=== PATIENT | male | born 1955 | race Caucasian/White ===

== ENCOUNTER 2020-03-22 16:25 | Emergency (ER) | payer BC ==
--- NOTE | 2020-03-22 17:29 | EDM.PDOC ---
ED HPI GENERAL MEDICAL PROBLEM - General Chief Complaint: Lower Extremity Injury/Pain Stated Complaint: SWOLLEN LEFT CALF Time Seen by Provider: 03/22/20 17:11 Source of Information: Reports: Patient, Old Records, RN Notes Reviewed History Limitations: Reports: No Limitations - History of Present Illness INITIAL COMMENTS - FREE TEXT/NARRATIVE: 64-year-old gentleman presents emergency department a complaint of left calf pain, he was initially evaluated by his primary care was set up for an ultrasound which was done 2 days prior negative for DVT however concern for a large fluid collection 3.5 x 1.3 x 4.3 which may represent a dissecting or ruptured Freire's cyst. He states the pain and swelling in his leg has increased. No shortness of breath no chest pain he has been using Advil for pain control Left Leg Pain Score (Numeric/FACES): 8 - Related Data Allergies Allergy/AdvReac Type Severity Reaction Status Date / Time No Known Allergies Allergy Verified 03/22/20 16:47 Home Meds: Home Meds Naproxen 500 mg PO BID 03/22/20 [History] Past Medical History Gastrointestinal History: Reports: GERD, Irritable Bowel Syndrome Musculoskeletal History: Reports: Other (See Below) Other Musculoskeletal History: right elbow abcess - Infectious Disease History Infectious Disease History: Reports: Chicken Pox, Shingles - Past Surgical History GI Surgical History: Reports: Colonoscopy, Hernia, Inguinal, Kristine Fundoplication Musculoskeletal Surgical History: Reports: Arthroscopic Knee Social & Family History - Family History Family Medical History: Noncontributory - Tobacco Use Smoking Status *Q: Never Smoker - Caffeine Use Caffeine Use: Reports: Coffee, Soda - Recreational Drug Use Recreational Drug Use: No Review of Systems - Review of Systems Review Of Systems: See Below Respiratory: Reports: No Symptoms Cardiovascular: Reports: Edema GI/Abdominal: Reports: No Symptoms Musculoskeletal: Reports: Leg Pain Skin: Denies: Pallor, Erythema, Wound Neurological: Reports: No Symptoms ED EXAM, GENERAL - Physical Exam Exam: See Below Free Text/Narrative:: Examination left lower extremity I can appreciate a fluid collection that is described by the ultrasound at the posterior calf the calf is markedly enlarged compared to the right the pedal pulse on the left side is +2 Exam Limited By: No Limitations General Appearance: Alert, WD/WN, No Apparent Distress Respiratory/Chest: No Respiratory Distress, Lungs Clear, Normal Breath Sounds, No Accessory Muscle Use, Chest Non-Tender Cardiovascular: No Murmur, Irregularly Irregular GI/Abdominal: Soft, Non-Tender Course - Vital Signs Last Recorded V/S: Last Vital Signs Temp 96.7 F L 03/22/20 16:45 Pulse 74 03/22/20 18:43 Resp 16 03/22/20 18:43 BP 149/120 H 03/22/20 18:43 Pulse Ox 97 03/22/20 18:43 - Orders/Labs/Meds Orders: Active Orders 24 hr Category Date Time Status Cardiac Monitoring [RC] .As Directed Care 03/22/20 17:18 Active EKG Documentation Completion [RC] ASDIRECTED Care 03/22/20 17:19 Active UA W/MICROSCOPIC [URIN] Stat Lab 03/22/20 17:18 Ordered EKG 12 Lead [EK] Stat Ther 03/22/20 17:19 Ordered Labs: Laboratory Tests 03/22/20 03/22/20 Range/Units 17:18 17:46 WBC 6.0 (4.5-11.0) K/uL RBC 4.16 L (4.30-5.90) M/uL Hgb 12.9 (12.0-15.0) g/dL Hct 39.9 L (40.0-54.0) % MCV 96 (80-98) fL MCH 31 (27-31) pg MCHC 32 (32-36) % Plt Count 287 (150-400) K/uL Neut % (Auto) 68 H (36-66) % Lymph % (Auto) 18 L (24-44) % Rice % (Auto) 12 H (2-6) % Eos % (Auto) 2 (2-4) % Baso % (Auto) 0 (0-1) % Sodium 139 L (140-148) mmol/L Potassium 4.1 (3.6-5.2) mmol/L Chloride 104 (100-108) mmol/L Carbon Dioxide 29 (21-32) mmol/L Anion Gap 10.1 (5.0-14.0) mmol/L BUN 8 (7-18) mg/dL Creatinine 1.0 (0.8-1.3) mg/dL Est Cr Clr Drug Dosing 79.76 mL/min Estimated GFR (MDRD) > 60 (>60) Glucose 84 (74-106) mg/dL Calcium 8.4 L (8.5-10.1) mg/dL Total Bilirubin 0.4 (0.2-1.0) mg/dL AST 33 (15-37) U/L ALT 44 (12-78) U/L Alkaline Phosphatase 61 (46-116) U/L Troponin I < 0.017 (0.000-0.056) ng/mL Total Protein 6.9 (6.4-8.2) g/dL Albumin 3.3 L (3.4-5.0) g/dL Globulin 3.6 H (2.3-3.5) g/dL Albumin/Globulin Ratio 0.9 L (1.2-2.2) Departure - Departure Time of Disposition: 18:54 Disposition: Home, Self-Care 01 Condition: Fair Clinical Impression: Ruptured Bakers cyst, New onset atrial fibrillation - Discharge Information Instructions: Atrial Fibrillation, [id number], Freire Cyst Referrals: PCP,None [Primary Care Provider] - Forms: ED Department Discharge Additional Instructions: The Ortho clinic will call you on Monday for an appointment time with Dr. Tamayo, please follow-up with your primary care in the next 3 to 5 days for reevaluation of your atrial fibrillation, recommend starting full dose aspirin at this time consider consultation with bottom cager for possible ablation and/or electrocardioversion Sepsis Event Note - Evaluation Sepsis Screening Result: No Definite Risk - Focused Exam Vital Signs: Vital Signs Temp Pulse Resp BP Pulse Ox 03/22/20 18:43 74 16 149/120 H 97 03/22/20 17:02 71 16 143/116 H 97 03/22/20 16:45 96.7 F L 73 16 149/115 H 96 03/22/20 16:43 96.7 F L 73 16 149/115 H 96 Date Exam was Performed: 03/22/20 Time Exam was Performed: 18:51 - My Orders Last 24 Hours: My Active Orders 03/22/20 17:18 Cardiac Monitoring [RC] .As Directed UA W/MICROSCOPIC [URIN] Stat 03/22/20 17:19 EKG Documentation Completion [RC] ASDIRECTED EKG 12 Lead [EK] Stat - Assessment/Plan Last 24 Hours: My Active Orders 03/22/20 17:18 Cardiac Monitoring [RC] .As Directed UA W/MICROSCOPIC [URIN] Stat 03/22/20 17:19 EKG Documentation Completion [RC] ASDIRECTED EKG 12 Lead [EK] Stat Plan: Assessment Acuity = acute Site and laterality = ruptured Freire's cyst left lower leg, new onset atrial fibrillation Etiology = unknown Manifestations = leg pain asymptomatic with atrial fibrillation Location of injury = Home Lab values = CBC CMP and troponin unremarkable EKG demonstrates atrial fibrillation reviewed ultrasound from 430 which demonstrates no DVT and expanding fluid collection consistent with ruptured Freire's cyst Plan Call discussed case with [facility] at 1845 recommended clinic follow-up for his expanding Freire's cyst as he is asymptomatic at this time neurologically. For his new onset atrial fibrillation he has no idea when this come about he is not feeling any palpitations his Chance vas 2 score is 1 only because of his age he is in low moderate risk I counseled him risks benefits and alternatives to anticoagulation he is going to try a baby aspirin follow-up with his primary care recommend consultation with electrophysiology to see if he is a candidate for ablation, appointment is set up with orthopedics for consultation of his expanding Freire's cyst This note was dictated using [employer] voice recognition software please call with any questions on syntax or grammar.
== END 2020-03-22 19:15 | disposition home or self-care (01) ==
LOC: JP.ED 16:25
DX: M66.0 Rupture of popliteal cyst (principal); I48.91 Unspecified atrial fibrillation
CPT/HCPCS: 36415; 80053; 84484; 85025; 93005; 99283-25

== ENCOUNTER 2020-07-09 22:09 | Observation (INO) | payer BC ==
--- NOTE | 2020-07-09 22:23 | EDM.PDOC ---
ED HPI GENERAL MEDICAL PROBLEM - General Chief Complaint: Chest Pain Stated Complaint: CHEST PAIN Time Seen by Provider: 07/09/20 22:10 Source of Information: Reports: Patient, Old Records, RN History Limitations: Reports: No Limitations - History of Present Illness INITIAL COMMENTS - FREE TEXT/NARRATIVE: 64 yo male had an ablation yesterday at [facility] in [place]. He went to bed early tonight and noticed pain under his sternum associated with deep breathing. He feels mildly SOB. He is not sure, but thinks his SOB is worse with lying flat. He has never been a smoker. He has an occasional dry cough. No pHx of CHF. No known hx of CAD. Later tells me he had some of this pain under his sternum already at the hospital this morning and reported it to some of the staff and he was told it was going to take some time for him to heal. Onset: Today Onset Date: 07/09/20 Duration: Hour(s):, Constant Location: Reports: Chest Quality: Reports: Sharp Severity: Moderate Improves with: Reports: Other (shallow breathing) Worsens with: Reports: Breathing (deep breathing) Context: Reports: Other (See HPI) Associated Symptoms: Reports: Chest Pain, Cough, Shortness of Breath. 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 left calf pain and swelling - Infectious Disease History Infectious Disease History: Reports: Chicken Pox, Shingles - Past Surgical History Head Surgeries/Procedures: Reports: None GI Surgical History: Reports: Colonoscopy, Hernia, Inguinal, Kristine Fundoplication Musculoskeletal Surgical History: Reports: Arthroscopic Knee Social & Family History - Family History Family Medical History: Noncontributory - Caffeine Use Caffeine Use: Reports: Coffee, Soda ED ROS GENERAL - Review of Systems Review Of Systems: See Below Constitutional: Reports: No Symptoms HEENT: Reports: No Symptoms Respiratory: Reports: Shortness of Breath, Pleuritic Chest Pain, Cough. Denies: Wheezing, Sputum, Hemoptysis Cardiovascular: Reports: No Symptoms Endocrine: Reports: No Symptoms GI/Abdominal: Reports: No Symptoms Musculoskeletal: Reports: No Symptoms Skin: Reports: No Symptoms ED EXAM, GENERAL - Physical Exam Exam: See Below Exam Limited By: No Limitations General Appearance: Alert, WD/WN, No Apparent Distress Eye Exam: Bilateral Eye: Normal Inspection Ears: Normal External Exam, Normal Canal, Hearing Loss (mild) Ear Exam: Bilateral Ear: Auricle Normal, Canal Normal Nose: Normal Inspection, No Blood Throat/Mouth: Normal Inspection, Normal Lips, Normal Oropharynx, Normal Voice, No Airway Compromise Head: Atraumatic, Normocephalic Neck: Normal Inspection Respiratory/Chest: No Respiratory Distress, No Accessory Muscle Use, Chest Non- Tender, Rales Cardiovascular: Regular Rate, Rhythm, No Edema Back Exam: Normal Inspection Extremities: Normal Inspection, Normal Range of Motion, Non-Tender, No Pedal Edema Neurological: Alert, Oriented, CN II-XII Intact, Normal Cognition, No Motor/Sensory Deficits Psychiatric: Normal Affect, Normal Mood Skin Exam: Warm, Dry, Intact, Normal Color, No Rash EKG INTERPRETATION EKG Date: 07/10/20 Time: 00:15 Rhythm: NSR Rate (Beats/Min): 74 [place]: Normal P-Wave: Present QRS: Normal ST-T: Normal QT: Normal Comparison: Change From Previous EKG (change from afib to NSR. LVH present.) Course - Vital Signs Text/Narrative:: spoke with Dr. Galindo, [facility] cardiology, @ 0030h Dr. Torre called @ 0035h Last Recorded V/S: Last Vital Signs Temp 37.4 C 07/09/20 22:52 Pulse 75 07/10/20 00:37 Resp 15 07/10/20 00:37 BP 141/89 H 07/10/20 00:37 Pulse Ox 92 L 07/10/20 00:37 - Orders/Labs/Meds Orders: Active Orders 24 hr Category Date Time Status Patient Status [ADT] Routine ADT 07/10/20 01:20 Active Bedrest Bathroom Privileges [RC] ASDIRECTED Care 07/10/20 01:20 Active Cardiac Monitoring [RC] .As Directed Care 07/09/20 22:11 Active Cardiac Monitoring [RC] CONTINUOUS Care 07/10/20 01:21 Active EKG Documentation Completion [RC] ASDIRECTED Care 07/09/20 23:32 Active May Shower [RC] ASDIRECTED Care 07/10/20 01:20 Active Notify Provider Vital Signs [RC] ASDIRECTED Care 07/10/20 01:22 Active Oxygen Therapy Adult [Oxygen Therapy, ED] [RC] Care 07/10/20 00:20 Active ASDIRECTED Oxygen Therapy [RC] PRN Care 07/10/20 01:20 Active Pulse Oximetry [RC] CONTINUOUS Care 07/10/20 01:22 Active RT Aerosol Therapy [RC] ASDIRECTED Care 07/10/20 01:25 Active Up ad Sharda [RC] ASDIRECTED Care 07/10/20 01:20 Active Up to Chair [RC] QID Care 07/10/20 01:20 Active VTE/DVT Education [RC] Per Unit Routine Care 07/10/20 01:20 Active Vital Signs [RC] Q4H Care 07/10/20 01:20 Active Nothing per Oral Now Diet [DIET] Diet 07/10/20 Breakfast Active Acetaminophen [TylenoL] Med 07/10/20 01:20 Ordered 650 mg PO Q4H PRN Acetaminophen/HYDROcodone [[place] 325-5 MG] Med 07/10/20 01:20 Ordered 2 tab PO Q4H PRN Albuterol [Proventil Neb Soln] Med 07/10/20 01:20 Ordered 2.5 mg NEB Q4H PRN Morphine Med 07/10/20 01:20 Ordered 2 mg IVPUSH Q2H PRN Ondansetron [Zofran ODT] Med 07/10/20 01:20 Ordered 4 mg PO Q6H PRN Promethazine [Phenergan] 6.25 mg Med 07/10/20 01:20 Ordered Sodium Chloride 0.9% [Normal Saline] 50 ml IV Q6H Sodium Chloride 0.9% [Saline Flush] Med 07/09/20 23:25 Active 10 ml FLUSH ASDIRECTED PRN Saline Lock Insert [OM.PC] Routine Oth 07/09/20 23:25 Ordered Resuscitation Status Routine Resus Stat 07/10/20 01:20 Ordered EKG 12 Lead [EK] Routine Ther 07/09/20 23:32 Ordered Medication Orders Acetaminophen (Tylenol) 650 mg PO Q4H PRN PRN Reason: Pain (Mild 1-3)/fever Hydrocodone Bitart/Acetaminophen ([place] 325-5 Mg) 2 tab PO Q4H PRN PRN Reason: Pain (moderate 4-6) Albuterol (Proventil Neb Soln) 2.5 mg NEB Q4H PRN PRN Reason: Shortness Of Breath/wheezing Promethazine HCl 6.25 mg/ (Sodium Chloride) 50.25 mls @ 200 mls/hr IV Q6H PRN PRN Reason: Nausea/Vomiting Morphine Sulfate (Morphine) 2 mg IVPUSH Q2H PRN PRN Reason: Pain (severe 7-10) Ondansetron HCl (Zofran Odt) 4 mg PO Q6H PRN PRN Reason: Nausea able to take PO Sodium Chloride (Saline Flush) 10 ml FLUSH ASDIRECTED PRN PRN Reason: Keep Vein Open Last Admin: 07/09/20 23:54 Dose: 10 ml Documented by: FABRICIO Labs: Laboratory Tests 07/09/20 07/09/20 Range/Units 23:34 23:34 WBC 7.9 (4.5-11.0) K/uL RBC 4.49 (4.30-5.90) M/uL Hgb 12.9 (12.0-15.0) g/dL Hct 41.6 (40.0-54.0) % MCV 93 (80-98) fL MCH 29 (27-31) pg MCHC 31 L (32-36) % Plt Count 207 (150-400) K/uL Sodium 135 L (140-148) mmol/L Potassium 4.0 (3.6-5.2) mmol/L Chloride 101 (100-108) mmol/L Carbon Dioxide 26 (21-32) mmol/L Anion Gap 12.0 (5.0-14.0) mmol/L BUN 14 D (7-18) mg/dL Creatinine 1.0 (0.8-1.3) mg/dL Est Cr Clr Drug Dosing 79.77 mL/min Estimated GFR (MDRD) > 60 (>60) Glucose 102 (74-106) mg/dL Calcium 8.0 L (8.5-10.1) mg/dL Troponin I 2.799 H* (0.000-0.056) ng/mL NT-Pro-B Natriuret Pep 1034 H (5-125) pg/mL Meds: Medications Generic Name Dose Route Start Last Admin Trade Name Haresh PRN Reason Stop Dose Admin Acetaminophen 650 mg 07/10/20 01:20 Tylenol PO Q4H PRN Pain (Mild 1-3)/fever Hydrocodone Bitart/Acetaminophen 2 tab 07/10/20 01:20 [place] 325-5 Mg PO Q4H PRN Pain (moderate 4-6) Albuterol 2.5 mg 07/10/20 01:20 Proventil Neb Soln NEB Q4H PRN Shortness Of Breath/wheezing Promethazine HCl 6.25 mg/ 50.25 mls @ 200 mls/hr 07/10/20 01:20 Sodium Chloride IV Q6H PRN Nausea/Vomiting Morphine Sulfate 2 mg 07/10/20 01:20 Morphine IVPUSH Q2H PRN Pain (severe 7-10) Ondansetron HCl 4 mg 07/10/20 01:20 Zofran Odt PO Q6H PRN Nausea able to take PO Sodium Chloride 10 ml 07/09/20 23:25 07/09/20 23:54 Saline Flush FLUSH 10 ml ASDIRECTED PRN Administration Keep Vein Open Discontinued Medications Generic Name Dose Route Start Last Admin Trade Name Haresh PRN Reason Stop Dose Admin Aspirin 324 mg 07/10/20 00:13 07/10/20 00:17 Aspirin PO 07/10/20 00:14 324 mg ONETIME ONE Administration Furosemide 40 mg 07/09/20 23:25 07/09/20 23:45 Lasix IVPUSH 07/09/20 23:26 40 mg ONETIME ONE Administration Morphine Sulfate 4 mg 07/10/20 00:13 07/10/20 00:17 Morphine IVPUSH 07/10/20 00:14 4 mg ONETIME ONE Administration Oxycodone/Acetaminophen 1 tab 07/09/20 22:40 07/09/20 22:51 Percocet 325-5 Mg PO 07/09/20 22:41 1 tab ONETIME STA Administration - Radiology Interpretation Free Text/Narrative:: CXR-Findings/Impression: Cardiovascular and mediastinum: Heart size within normal limits with mild aortic tortuosity. Lungs and pleural spaces: Pulmonary cephalization with trace bilateral pleural effusions. Trace interstitial prominence, possibly minimal interstitial edema. Bones and soft tissues: Old mid thoracic compression fracture. Dictated by Reynaldo Fiore MD @ Jul 09 2020 11:05PM Departure - Departure Time of Disposition: 01:26 Disposition: Refer to Observation Condition: Fair Clinical Impression: Pleuritic chest pain, Mild shortness of breath Interstitial edema Qualifiers: Edema type: unspecified Qualified Code(s): R60.9 - Edema, unspecified Referrals: PCP,None [Primary Care Provider] - Forms: ED Department Discharge Sepsis Event Note (ED) - Focused Exam Vital Signs: Vital Signs Temp Pulse Resp BP Pulse Ox 07/10/20 00:37 75 15 141/89 H 92 L 07/10/20 00:20 76 23 H 136/94 H 93 L 07/09/20 23:55 78 14 127/82 92 L 07/09/20 22:52 37.4 C 74 20 136/89 93 L 07/09/20 22:39 74 20 136/89 93 L 07/09/20 22:14 37.4 C 80 18 137/96 H 94 L - My Orders Last 24 Hours: My Active Orders 07/09/20 22:11 Cardiac Monitoring [RC] .As Directed 07/09/20 23:25 Sodium Chloride 0.9% [Saline Flush] 10 ml FLUSH ASDIRECTED PRN Saline Lock Insert [OM.PC] Routine 07/09/20 23:32 EKG Documentation Completion [RC] ASDIRECTED EKG 12 Lead [EK] Routine 07/10/20 00:20 Oxygen Therapy Adult [Oxygen Therapy, ED] [RC] ASDIRECTED - Assessment/Plan Last 24 Hours: My Active Orders 07/09/20 22:11 Cardiac Monitoring [RC] .As Directed 07/09/20 23:25 Sodium Chloride 0.9% [Saline Flush] 10 ml FLUSH ASDIRECTED PRN Saline Lock Insert [OM.PC] Routine 07/09/20 23:32 EKG Documentation Completion [RC] ASDIRECTED EKG 12 Lead [EK] Routine 07/10/20 00:20 Oxygen Therapy Adult [Oxygen Therapy, ED] [RC] ASDIRECTED
[2020-07-09] MEDS ORDERED: Acetaminophen/oxyCODONE 325-5 MG Tab PO STA (22:40)
--- NOTE | 2020-07-09 23:07 | CRLCR ---
Indication: Shortness of breath Technique: Chest 2 views Comparison: None Findings/Impression: Cardiovascular and mediastinum: Heart size within normal limits with mild aortic tortuosity. Lungs and pleural spaces: Pulmonary cephalization with trace bilateral pleural effusions. Trace interstitial prominence, possibly minimal interstitial edema. Bones and soft tissues: Old mid thoracic compression fracture. Dictated by Reynaldo Fiore MD @ Jul 09 2020 11:05PM Signed by Dr. Reynaldo Fiore @ Jul 09 2020 11:06PM
[2020-07-09] MEDS ORDERED: Sodium Chloride 0.9% 10 ML Syringe FLUSH PRN (23:25)
[2020-07-09] MEDS ORDERED: Furosemide 40 MG/4 ML VIAL IVPUSH ONE (23:25)
[2020-07-10] MEDS ORDERED: Morphine 4 MG/ML Syringe IVPUSH ONE (00:13)
[2020-07-10] MEDS ORDERED: Aspirin 81 MG Tab.Chew PO ONE (00:13)
[2020-07-10] MEDS ORDERED: Acetaminophen 325 MG Tab PO PRN (01:20)
[2020-07-10] MEDS ORDERED: Promethazine 6.25 MG in Sodium Chloride 0.9% 50 ML IV PRN (01:20)
[2020-07-10] MEDS ORDERED: Ondansetron 4 MG Tab.DIS PO PRN (01:20)
[2020-07-10] MEDS ORDERED: Albuterol 0.083% 2.5 MG/3 ML Neb Soln NEB PRN (01:20)
--- NOTE | 2020-07-10 01:42 | PCM.HP.2 ---
H&P History of Present Illness - General Date of Service: 07/10/20 Admit Problem/Dx: Admission Diagnosis/Problem Admission Diagnosis/Problem Chest pain Source of Information: Patient History Limitations: Reports: No Limitations - History of Present Illness Initial Comments - Free Text/Narative: Patient is a 64yo male with PMH of a-fib who had an ablation on 07/08/[address] [facility]. He says that he started this evening having chest discomfort and SOB. He says he was doing well but this started late in the evening after he was home for some time. His warfarin was discontinued after the ablation and he was started on eliquis. He took his meds at 1730pm. He also has GERD and takes pantoprazole for this. He has no other medical history of note Onset of Symptoms: Reports: Today Symptom Onset Date: 07/09/20 Location: Reports: Chest Quality: Reports: Ache Severity: Severe Improves with: Reports: Medication Worsens with: Reports: Breathing Associated Symptoms: Reports: Shortness of Breath chest pain Pain Score (Numeric/FACES): 7 - Related Data Allergies/Adverse Reactions: Allergies Allergy/AdvReac Type Severity Reaction Status Date / Time No Known Allergies Allergy Verified 07/09/20 22:14 Home Medications: Home Meds Apixaban [Eliquis] 5 mg PO BID 07/09/20 [History] Flecainide [Tambocor] 50 mg PO BID 07/09/20 [History] Metoprolol Succinate 50 mg PO DAILY 07/09/20 [History] Pantoprazole [ProTONIX] 40 mg PO DAILY 07/09/20 [History] Past Medical History Cardiovascular History: Reports: Afib, Other (See Below) Other Cardiovascular History: left atrial ablation Gastrointestinal History: Reports: GERD, Irritable Bowel Syndrome Genitourinary History: Reports: None Musculoskeletal History: Reports: Other (See Below) Other Musculoskeletal History: right elbow abcess. left calf pain and swelling - Infectious Disease History Infectious Disease History: Reports: Chicken Pox, Shingles - Past Surgical History Head Surgeries/Procedures: Reports: None GI Surgical History: Reports: Colonoscopy, Hernia, Inguinal, Kristine Fundoplication Musculoskeletal Surgical History: Reports: Arthroscopic Knee Social & Family History - Family History Family Medical History: Noncontributory - Tobacco Use Smoking Status *Q: Never Smoker - Caffeine Use Caffeine Use: Reports: Coffee, Soda - Recreational Drug Use Recreational Drug Use: No H&P Review of Systems - Review of Systems: Review Of Systems: See Below General: Reports: No Symptoms HEENT: Reports: No Symptoms Pulmonary: Reports: Shortness of Breath Cardiovascular: Reports: Chest Pain Gastrointestinal: Reports: No Symptoms Genitourinary: Reports: No Symptoms Musculoskeletal: Reports: No Symptoms Skin: Reports: No Symptoms Psychiatric: Reports: No Symptoms Hematologic/Lymphatic: Reports: No Symptoms Immunologic: Reports: No Symptoms Exam - Exam Exam: See Below - Vital Signs Vital Signs: Last Vital Signs Temp 37.7 C 07/10/20 01:14 Pulse 73 07/10/20 01:14 Resp 19 07/10/20 01:14 BP 125/80 07/10/20 01:14 Pulse Ox 93 L 07/10/20 01:14 Weight: 80.7 kg - Exam General: Alert, Oriented, 4 HEENT: PERRLA, Hearing Intact, Mucosa Moist & [place], Nares Patent, Normal Nasal Septum, Posterior Pharynx Clear, Conjunctiva Clear, EOMI, EACs Clear, TMs Clear Neck: Supple, Trachea Midline, 2 Lungs: Clear to Auscultation, Normal Respiratory Effort Cardiovascular: Regular Rate, Regular Rhythm, Normal S1, Normal S2. No: Irregular Rhythm, Systolic Murmur GI/Abdominal Exam: Normal Bowel Sounds, Soft, Non-Tender, No Organomegaly, No Distention, No Abnormal Bruit, No Mass, Pelvis Stable (Male) Exam: No Hernia, Normal Inspection, Normal Prostate, Circumcised Rectal (Males) Exam: Deferred Back Exam: Normal Inspection, Full Range of Motion, NT Extremities: Normal Inspection, Normal Range of Motion, Non-Tender, No Pedal Edema, Normal Capillary Refill Skin: Warm, Dry, Intact Neurological: Cranial Nerves Intact, Reflexes Equal Bilateral Neuro Extensive - Mental Status: Alert, Oriented x3, Normal Mood/Affect, Normal Cognition Neuro Extensive - Motor, Sensory, Reflexes: CN II-XII Intact, Normal Gait, Normal Reflexes Psychiatric: Alert, Normal Affect, Normal Mood - Patient Data Lab Results Last 24 hrs: Laboratory Results - last 24 hr 07/09/20 07/09/20 Range/Units 23:34 23:34 WBC 7.9 (4.5-11.0) K/uL RBC 4.49 (4.30-5.90) M/uL Hgb 12.9 (12.0-15.0) g/dL Hct 41.6 (40.0-54.0) % MCV 93 (80-98) fL MCH 29 (27-31) pg MCHC 31 L (32-36) % Plt Count 207 (150-400) K/uL Sodium 135 L (140-148) mmol/L Potassium 4.0 (3.6-5.2) mmol/L Chloride 101 (100-108) mmol/L Carbon Dioxide 26 (21-32) mmol/L Anion Gap 12.0 (5.0-14.0) mmol/L BUN 14 D (7-18) mg/dL Creatinine 1.0 (0.8-1.3) mg/dL Est Cr Clr Drug Dosing 79.77 mL/min Estimated GFR (MDRD) > 60 (>60) Glucose 102 (74-106) mg/dL Calcium 8.0 L (8.5-10.1) mg/dL Troponin I 2.799 H* (0.000-0.056) ng/mL NT-Pro-B Natriuret Pep 1034 H (5-125) pg/mL Result Diagrams: 07/09/20 23:34 07/09/20 23:34 Sepsis Event Note - Evaluation Sepsis Screening Result: No Definite Risk - Focused Exam Vital Signs: Vital Signs Temp Pulse Resp BP Pulse Ox 07/10/20 01:14 37.7 C 73 19 125/80 93 L 07/10/20 00:37 75 15 141/89 H 92 L 07/10/20 00:20 76 23 H 136/94 H 93 L 07/09/20 23:55 78 14 127/82 92 L 07/09/20 22:52 37.4 C 74 20 136/89 93 L 07/09/20 22:39 74 20 136/89 93 L 07/09/20 22:14 37.4 C 80 18 137/96 H 94 L - Problem List (1) S/P ablation of atrial fibrillation SNOMED Code(s): 491273697, 411517475, 512015389 ICD Code: Z98.890 - OTHER SPECIFIED POSTPROCEDURAL STATES; Z86.79 - PERSONAL HISTORY OF OTHER DISEASES OF THE CIRCULATORY SYSTEM Status: Acute Current Visit: Yes Onset Date: ~07/08/20 Problem Details: Per cardiology in [place] patient should be monitored o/n for symptoms d/t ablation. Patient improving with lasix and pain medication. Cardiology also believes trop elevation is d/t ablation and is not due to ischemia Patient to alert staff if pain or SOB is worsening as he may need urgent transfer to [facility] for FU care post ablation. If patient is continuing to improve may be discharged in AM to home. (2) Chest pain SNOMED Code(s): 34645127 ICD Code: R07.9 - CHEST PAIN, UNSPECIFIED Status: Acute Current Visit: Yes Problem Details: Per cardiology in [place] patient should be monitored o/n for symptoms d/t ablation. Patient improving with lasix and pain medication. Car diology also believes trop elevation is d/t ablation and is not due to ischemia Qualifiers: Chest pain type: chest pain on breathing Qualified Code(s): R07.1 - Chest pain on breathing; R07.81 - Pleurodynia (3) Interstitial edema SNOMED Code(s): 631384584, 447609173 ICD Code: R60.9 - EDEMA, UNSPECIFIED Status: Acute Current Visit: Yes Onset Date: ~07/09/20 Problem Details: Per cardiology in [place] patient should be monitored o/n for symptoms d/t ablation. Patient improving with lasix and pain medication. Cardiology also believes trop elevation is d/t ablation and is not due to ischemia. Will continue lasix 40mg IVP Qualifiers: Edema type: unspecified Qualified Code(s): R60.9 - Edema, unspecified (4) Mild shortness of breath SNOMED Code(s): 962286765 ICD Code: R06.02 - SHORTNESS OF BREATH Status: Acute Current Visit: Yes Onset Date: ~07/09/20 Problem Details: Likely 2/2 to pleural effusions that are likely 2/2 to cardiac ablation per cardiology in [place]. Will continue to diures with lasix (5) Pleuritic chest pain SNOMED Code(s): 5281313 ICD Code: R07.81 - PLEURODYNIA Status: Acute Current Visit: Yes Onset Date: ~07/09/20 Problem Details: Likely 2/2 to pleural effusions that are likely 2/2 to cardiac ablation per cardiology in [place]. Will continue to diures with lasix (6) GERD (gastroesophageal reflux disease) SNOMED Code(s): 355779555 ICD Code: K21.9 - GASTRO-ESOPHAGEAL REFLUX DISEASE WITHOUT ESOPHAGITIS Status: Acute Current Visit: Yes Onset Date: Unknown Problem Details: Will continue patient's pantoprazole BID Qualifiers: Esophagitis presence: esophagitis presence not specified Qualified Code(s): K21.9 - Gastro-esophageal reflux disease without esophagitis Problem List Initiated/Reviewed/Updated: Yes Orders Last 24hrs: Active Orders 24 hr Category Date Time Status Patient Status Manage Transfer [TRANSFER] Routine ADT 07/10/20 01:30 Ordered Patient Status [ADT] Routine ADT 07/10/20 01:20 Active Bedrest Bathroom Privileges [RC] ASDIRECTED Care 07/10/20 01:20 Active Cardiac Monitoring [RC] .As Directed Care 07/09/20 22:11 Active Cardiac Monitoring [RC] CONTINUOUS Care 07/10/20 01:21 Active EKG Documentation Completion [RC] ASDIRECTED Care 07/09/20 23:32 Active May Shower [RC] ASDIRECTED Care 07/10/20 01:20 Active Notify Provider Vital Signs [RC] ASDIRECTED Care 07/10/20 01:22 Active Oxygen Therapy Adult [Oxygen Therapy, ED] [RC] Care 07/10/20 00:20 Active ASDIRECTED Oxygen Therapy [RC] PRN Care 07/10/20 01:20 Active Pulse Oximetry [RC] CONTINUOUS Care 07/10/20 01:22 Active RT Aerosol Therapy [RC] ASDIRECTED Care 07/10/20 01:25 Active Up ad Sharda [RC] ASDIRECTED Care 07/10/20 01:20 Active Up to Chair [RC] QID Care 07/10/20 01:20 Active VTE/DVT Education [RC] Per Unit Routine Care 07/10/20 01:20 Active Vital Signs [RC] Q4H Care 07/10/20 01:20 Active Nothing per Oral Now Diet [DIET] Diet 07/10/20 Breakfast Active Acetaminophen [TylenoL] Med 07/10/20 01:20 Ordered 650 mg PO Q4H PRN Acetaminophen/HYDROcodone [Morris 325-5 MG] Med 07/10/20 01:20 Ordered 2 tab PO Q4H PRN Albuterol [Proventil Neb Soln] Med 07/10/20 01:20 Ordered 2.5 mg NEB Q4H PRN Apixaban [Eliquis] Med 07/10/20 09:00 Ordered 5 mg PO BID Flecainide [Tambocor] Med 07/10/20 09:00 Ordered 50 mg PO BID Furosemide [Lasix] Med 07/10/20 03:30 Once 40 mg IVPUSH ONETIME ONE Morphine Med 07/10/20 01:20 Ordered 2 mg IVPUSH Q2H PRN Ondansetron [Zofran ODT] Med 07/10/20 01:20 Ordered 4 mg PO Q6H PRN Pantoprazole [ProTONIX] Med 07/10/20 07:30 Ordered 40 mg PO BIDAC Promethazine [Phenergan] 6.25 mg Med 07/10/20 01:20 Ordered Sodium Chloride 0.9% [Normal Saline] 50 ml IV Q6H Sodium Chloride 0.9% [Saline Flush] Med 07/09/20 23:25 Active 10 ml FLUSH ASDIRECTED PRN Saline Lock Insert [OM.PC] Routine Oth 07/09/20 23:25 Ordered Resuscitation Status Routine Resus Stat 07/10/20 01:20 Ordered EKG 12 Lead [EK] Routine Ther 07/09/20 23:32 Ordered Medication Orders Acetaminophen (Tylenol) 650 mg PO Q4H PRN PRN Reason: Pain (Mild 1-3)/fever Hydrocodone Bitart/Acetaminophen (Morris 325-5 Mg) 2 tab PO Q4H PRN PRN Reason: Pain (moderate 4-6) Albuterol (Proventil Neb Soln) 2.5 mg NEB Q4H PRN PRN Reason: Shortness Of Breath/wheezing Apixaban (Eliquis) 5 mg PO BID TIGRE Flecainide Acetate (Tambocor) 50 mg PO BID TIGRE Furosemide (Lasix) 40 mg IVPUSH ONETIME ONE Stop: 07/10/20 03:31 Promethazine HCl 6.25 mg/ (Sodium Chloride) 50.25 mls @ 200 mls/hr IV Q6H PRN PRN Reason: Nausea/Vomiting Morphine Sulfate (Morphine) 2 mg IVPUSH Q2H PRN PRN Reason: Pain (severe 7-10) Ondansetron HCl (Zofran Odt) 4 mg PO Q6H PRN PRN Reason: Nausea able to take PO Pantoprazole Sodium (Protonix) 40 mg PO BIDAC ITGRE Sodium Chloride (Saline Flush) 10 ml FLUSH ASDIRECTED PRN PRN Reason: Keep Vein Open Last Admin: 07/09/20 23:54 Dose: 10 ml Documented by: FABRICIO Assessment/Plan Comment:: Active/Suspected Problems Current Visit Only Table Problem Status Onset Chest pain Acute GERD (gastroesophageal reflux disease) Acute Interstitial edema Acute Mild shortness of breath Acute Pleuritic chest pain Acute S/P ablation of atrial fibrillation Acute ~07/08/20 Resuscitation Status 07/10/20 01:20 Resuscitation Status Routine Resuscitation Status: Full Code Abbreviations used in this policy: *Cardiopulmonary Resuscitation (CPR) *Do Not Resuscitate (DNR) *Do Not Intubate (DNI) Code status categories recognized at [facility] 1. Full Code a. If a patient experiences cardiac or respiratory arrest, all resuscitation efforts (including CPR, defibrillation, and airway management) will be performed. b. Patients without a specific code status order other than Full Code will be assumed to be Full Code Status. Intubation CPR Defibrillation YES YES YES 2. DNR a. If there are changes in the patients' vital signs and condition, including respiratory arrest, treatment with medications and intubation, if indicated will be performed. b. If a patient experiences cardiac arrest, resuscitation efforts (CPR and Defibrillation) will not be performed. Intubation CPR Defibrillation YES NO NO 3. DNR/DNI a. If there are changes in the patient's vital signs and condition, including respiratory arrest, treatment with medications and noninvasive airway management/positive pressure ventilation, if indicated will be performed b. If a patient experiences a cardiac arrest, resuscitation efforts (including CPR, defibrillation and intubation) will not be performed. Intubation CPR Defibrillation NO NO NO 4. DNR/DNI/Comfort Measures a. All medical and nursing interventions will be for the sole purpose of providing pain/symptom management for the patient. b. If a patient experiences a cardiac or respiratory arrest, resuscitation efforts (including CPR, defibrillation and intubation) will not be performed. Intubation CPR Defibrillation No NO NO ACTIVE MED ORDERS Generic Name Dose Route Start Last Admin Trade Name Freq PRN Reason Stop Dose Admin Acetaminophen 650 mg 07/10/20 01:20 Tylenol PO Q4H PRN Pain (Mild 1-3)/fever Hydrocodone Bitart/Acetaminophen 2 tab 07/10/20 03:00 Morris 325-5 Mg PO Q4H PRN Pain (moderate 4-6) Albuterol 2.5 mg 07/10/20 01:20 Proventil Neb Soln NEB Q4H PRN Shortness Of Breath/wheezing Apixaban 5 mg 07/10/20 09:00 Eliquis PO BID TIGRE Flecainide Acetate 50 mg 07/10/20 09:00 Tambocor PO BID TIGRE Furosemide 40 mg 07/10/20 03:30 Lasix IVPUSH 07/10/20 03:31 ONETIME ONE Promethazine HCl 6.25 mg/ 50.25 mls @ 200 mls/hr 07/10/20 01:20 Sodium Chloride IV Q6H PRN Nausea/Vomiting Morphine Sulfate 2 mg 07/10/20 02:00 Morphine IVPUSH Q2H PRN Pain (severe 7-10) Ondansetron HCl 4 mg 07/10/20 01:20 Zofran Odt PO Q6H PRN Nausea able to take PO Pantoprazole Sodium 40 mg 07/10/20 07:30 Protonix PO BIDAC TIGRE Sodium Chloride 10 ml 07/09/20 23:25 07/09/20 23:54 Saline Flush FLUSH 10 ml ASDIRECTED PRN Administration Keep Vein Open ACTIVE NON-MED ORDERS/Dietary 07/10/20 Breakfast Nothing per Oral Now Diet [DIET] Special Instructions: May have ice chips ACTIVE NON-MED ORDERS/Care 07/09/20 22:11 Cardiac Monitoring [RC] .As Directed 07/09/20 23:32 EKG Documentation Completion [RC] ASDIRECTED 07/10/20 00:20 Oxygen Therapy Adult [Oxygen Therapy, ED] [RC] ASDIRECTED Maintain SpO2% greater than: 92 Oxygen Therapy Mode, Primary: Nasal Cannula Oxygen Flow Rate (L/min): 2 07/10/20 01:20 Bedrest Bathroom Privileges [RC] ASDIRECTED May Shower [RC] ASDIRECTED Oxygen Therapy [RC] PRN Maintain SpO2% greater than: 92 Oxygen Therapy Mode, Primary: Nasal Cannula Oxygen Flow Rate (L/min): 0 Oxygen Therapy Mode, Secondary: Nasal Cannula Flow Rate (L/min), Secondary: 4 Up ad Sharda [RC] ASDIRECTED Up to Chair [RC] QID VTE/DVT Education [RC] Per Unit Routine Vital Signs [RC] Q4H 07/10/20 01:21 Cardiac Monitoring [RC] CONTINUOUS 07/10/20 01:22 Notify Provider Vital Signs [RC] ASDIRECTED Provider to Notify: Niru Torre Temperature greater than: 38.7 C Heart Rate greater than: 110 Heart Rate less than: 50 Systolic Blood Pressure greater than: 180 Systolic Blood Pressure less than: 90 Respiratory Rate greater than: 25 Respiratory rate less than: 8 O2 saturation less than: 89 Above Settings Reviewed & Approved: Yes Pulse Oximetry [RC] CONTINUOUS 07/10/20 01:25 RT Aerosol Therapy [RC] ASDIRECTED ACTIVE NON-MED ORDERS/Orderable Interventions Activity, Bedrest Bathroom Privileges Start: 07/10/20 01:20 Freq: ASDIRECTED Status: Active Protocol: Activity, Up ad Sharda Start: 07/10/20 01:20 Freq: ASDIRECTED Status: Active Protocol: Activity, Up to Chair Start: 07/10/20 01:20 Freq: QID Status: Active Protocol: Cardiac Monitoring/Telemetry Start: 07/09/20 22:11 Text: Status: Active Freq: .As Directed Protocol: Document 07/09/20 22:15 MJS (Rec: 07/09/20 22:15 MJS [id number]) Cardiac Monitoring/Telemetry Start: 07/10/20 01:21 Text: Status: Active Freq: CONTINUOUS Protocol: ED Oxygen Therapy Start: 07/10/20 00:20 Freq: ASDIRECTED Status: Active Protocol: Document 07/10/20 01:13 MJS (Rec: 07/10/20 01:14 MJS [id number]) EKG Documentation of Completion Start: 07/09/20 23:32 Freq: ASDIRECTED Status: Active Protocol: Document 07/10/20 00:24 CS (Rec: 07/10/20 00:25 CS [id number]) Education: VTE/DVT Topics Start: 07/10/20 01:20 Freq: Per Unit Routine Status: Active Protocol: Hygiene, May Shower Start: 07/10/20 01:2 0 Freq: ASDIRECTED Status: Active Protocol: Notify Provider Vital Signs Start: 07/10/20 01:22 Freq: ASDIRECTED Status: Active Protocol: Oxygen Therapy Start: 07/10/20 01:20 Freq: PRN Status: Active Protocol: Pulse Oximetry Start: 07/10/20 01:22 Freq: CONTINUOUS Status: Active Protocol: RT Aerosol Therapy Assessment Start: 07/10/20 01:25 Text: Status: Active Freq: ASDIRECTED Protocol: Vital Signs Start: 07/10/20 01:20 Text: Click to edit a change in frequency and times. Status: Active Freq: Q4H Protocol: VS.PEDS ACTIVE ORDERS/MEDS 07/09/20 23:25 Sodium Chloride 0.9% [Saline Flush] 10 ml FLUSH ASDIRECTED PRN 07/10/20 01:20 Acetaminophen [TylenoL] 650 mg PO Q4H PRN Acetaminophen/HYDROcodone [Morris 325-5 MG] 2 tab PO Q4H PRN Albuterol [Proventil Neb Soln] 2.5 mg NEB Q4H PRN Morphine 2 mg IVPUSH Q2H PRN Ondansetron [Zofran ODT] 4 mg PO Q6H PRN Promethazine [Phenergan] 6.25 mg Sodium Chloride 0.9% [Normal Saline] 50 ml IV Q6H 07/10/20 03:30 Furosemide [Lasix] 40 mg IVPUSH ONETIME ONE 07/10/20 07:30 Pantoprazole [ProTONIX] 40 mg PO BIDAC 07/10/20 09:00 Apixaban [Eliquis] 5 mg PO BID Flecainide [Tambocor] 50 mg PO BID ACTIVE NON-MED ORDERS/Therapies 07/09/20 23:32 EKG 12 Lead [EK] Routine Is Patient : Reason For Exam: chest pain ACTIVE NON-MED ORDERS/Transfer 07/10/20 01:30 Patient Status Manage Transfer [TRANSFER] Routine Patient Status: Refer to Observation Admission Diagnosis/Problem: Chest pain Reason for Admit: Chest pain post ablation Nurse Unit Type: Critical Care Adult Location Preference: ICU Admitting Physician: Niru Torre Attending Physician: Juan Ball ACTIVE NON-MED ORDERS/Other 07/09/20 23:25 Saline Lock Insert [OM.PC] Routine Comment: 07/10/20 01:20 Patient Status [ADT] Routine Patient Status: Refer to Observation Admission Diagnosis/Problem: Chest pain Reason for Admit: Chest pain post ablation Nurse Unit Type: Critical Care Adult Location Preference: ICU Admitting Physician: Niru Torre Attending Physician: Juan Ball - Mortality Measure Prognosis:: Good
[2020-07-10] MEDS ORDERED: Morphine 2 MG/ML SYRINGE IVPUSH PRN (02:00)
[2020-07-10] MEDS ORDERED: Acetaminophen/HYDROcodone 325-5 MG Tab PO PRN (03:00)
[2020-07-10] MEDS ORDERED: Furosemide 40 MG/4 ML VIAL IVPUSH ONE (03:30)
[2020-07-10] MEDS ORDERED: Pantoprazole 40 MG Tab.CR PO SCH (07:30)
[2020-07-10] MEDS ORDERED: Apixaban 5 MG Tab PO SCH (09:00)
[2020-07-10] MEDS ORDERED: Flecainide 50 MG Tab PO SCH (09:00)
--- NOTE | 2020-07-10 11:43 | PCM.DCSUM1 ---
Discharge Summary - Hospital Course Brief History: 64-year-old male with a history of cardiac ablation the day prior to admission who presented with pleuritic chest pain and dyspnea. He was admitted for observation, cardiac monitoring and diuresis with a moderately elevated troponin. Diagnosis: Stroke: No - Discharge Data Discharge Date: 07/10/20 Discharge Disposition: Home, Self-Care 01 Condition: Good - Referral to Home Health Primary Care Physician: PCP None - Discharge Diagnosis/Problem(s) (1) Pleuritic chest pain SNOMED Code(s): 9637438 ICD Code: R07.81 - PLEURODYNIA Status: Acute Onset Date: ~07/09/20 (2) S/P ablation of atrial fibrillation SNOMED Code(s): 223421545, 101965211, 129161563 ICD Code: Z98.890 - OTHER SPECIFIED POSTPROCEDURAL STATES; Z86.79 - PERSONAL HISTORY OF OTHER DISEASES OF THE CIRCULATORY SYSTEM Status: Chronic Onset Date: ~07/08/20 (3) Elevated troponin SNOMED Code(s): 777369832, 506184526, 525867340 ICD Code: R79.89 - OTHER SPECIFIED ABNORMAL FINDINGS OF BLOOD CHEMISTRY Status: Acute - Patient Summary/Data Hospital Course: Scar presented to the emergency room with dyspnea and pleuritic chest pain the day after having an ablation procedure for atrial fibrillation. Work-up in the emergency room revealed a sinus rhythm. Vitals were stable. His troponin was elevated at 2.799. There was no evidence for infection on the chest x-ray. There was some evidence to support volume overload though it was mild. He was given a dose of furosemide for this. His case was discussed with the cardiology folks at [facility] in [place]. They felt that the troponin elevation was probably related to his recent ablation procedure. They recommended monitoring overnight for repeat troponin testing. He was admitted to the intensive care unit for close monitoring. Overnight there were no acute issues. He has remained in sinus rhythm. He diuresed well with the dose of furosemide in the emergency room. His troponin level has trended down since admission. He has not had any chest pain since admission. I did take a peek at his heart with a bedside ultrasound and he appeared to have good function with no obvious valve abnormalities other than trace mitral regurgitation. He did not have a pericardial effusion. His IVC was normal sized and did collapse with respiration. I believe he is safe for outpatient management at this time. Were not to change any of his medications. We did decide to set him up for a stress test after consultation with the cardiology folks. He will be discharged home and will follow-up next week for his stress test. - Patient Instructions Diet: Heart Healthy Diet Activity: As Tolerated Driving: May Drive Today Showering/Bathing: May Shower Notify Provider of: Fever, Increased Pain Other/Special Instructions: 1. You were in the hospital for observation after episodes of chest pain that I do not believe are related to your heart. Your condition has been improving after we gave you medication to remove some extra fluid from your vascular system. Your troponin level was elevated suggesting damage to your heart muscle but the level has been trending down and I suspect this is left over from your cardiac ablation that was done recently. We are going to set up a stress test to make sure that there are no blockages in your coronary arteries. The plan is for this to be done in about 1 week. 2. Continue your home medications as recommended by your [employer] sales consultant following your ablation procedure. 3. I have placed an order for an outpatient stress test. Our radiology department will contact you to schedule this. I would recommend that we do it towards the end of next week. - Discharge Plan *PRESCRIPTION DRUG MONITORING PROGRAM REVIEWED*: Not Applicable *COPY OF PRESCRIPTION DRUG MONITORING REPORT IN PATIENT JONATHAN: Not Applicable Home Medications: Home Meds Apixaban [Eliquis] 5 mg PO BID 07/09/20 [History] Flecainide [Tambocor] 50 mg PO BID 07/09/20 [History] Metoprolol Succinate 50 mg PO DAILY 07/09/20 [History] Pantoprazole [ProTONIX] 40 mg PO DAILY 07/09/20 [History] Oxygen Therapy Mode: Room Air Patient Handouts: Exercise Stress Test Referrals: PCP,None [Primary Care Provider] - (f/u with your [employer] sales consultant as needed ) - Discharge Summary/Plan Comment DC Time >30 min.: Yes (40-stress test, counseling for heart disease) - Patient Data Vitals - Most Recent: Last Vital Signs Temp 36.8 C 07/10/20 08:00 Pulse 63 07/10/20 08:00 Resp 17 07/10/20 08:00 BP 128/77 07/10/20 08:00 Pulse Ox 96 07/10/20 08:00 Weight - Most Recent: 80.286 kg I&O - Last 24 hours: Intake & Output 07/09/20 07/10/20 07/10/20 22:59 06:59 14:59 Output Total 3450 1100 Balance -3450 -1100 Lab Results - Last 24 hrs: Laboratory Results - last 24 hr 07/09/20 07/09/20 07/10/20 Range/Units 23:34 23:34 05:02 WBC 7.9 (4.5-11.0) K/uL RBC 4.49 (4.30-5.90) M/uL Hgb 12.9 (12.0-15.0) g/dL Hct 41.6 (40.0-54.0) % MCV 93 (80-98) fL MCH 29 (27-31) pg MCHC 31 L (32-36) % Plt Count 207 (150-400) K/uL Sodium 135 L (140-148) mmol/L Potassium 4.0 (3.6-5.2) mmol/L Chloride 101 (100-108) mmol/L Carbon Dioxide 26 (21-32) mmol/L Anion Gap 12.0 (5.0-14.0) mmol/L BUN 14 D (7-18) mg/dL Creatinine 1.0 (0.8-1.3) mg/dL Est Cr Clr Drug Dosing 79.77 mL/min Estimated GFR (MDRD) > 60 (>60) Glucose 102 (74-106) mg/dL Calcium 8.0 L (8.5-10.1) mg/dL Troponin I 2.799 H* 2.003 H* (0.000-0.056) ng/mL NT-Pro-B Natriuret Pep 1034 H (5-125) pg/mL Med Orders - Current: Current Medications Acetaminophen (Tylenol) 650 mg PO Q4H PRN PRN Reason: Pain (Mild 1-3)/fever Hydrocodone Bitart/Acetaminophen ([place] 325-5 Mg) 2 tab PO Q4H PRN PRN Reason: Pain (moderate 4-6) Albuterol (Proventil Neb Soln) 2.5 mg NEB Q4H PRN PRN Reason: Shortness Of Breath/wheezing Apixaban (Eliquis) 5 mg PO BID [facility] Last Admin: 07/10/20 09:55 Dose: 5 mg Documented by: Flecainide Acetate (Tambocor) 50 mg PO BID [facility] Last Admin: 07/10/20 09:55 Dose: 50 mg Documented by: Promethazine HCl 6.25 mg/ (Sodium Chloride) 50.25 mls @ 200 mls/hr IV Q6H PRN PRN Reason: Nausea/Vomiting Morphine Sulfate (Morphine) 2 mg IVPUSH Q2H PRN PRN Reason: Pain (severe 7-10) Ondansetron HCl (Zofran Odt) 4 mg PO Q6H PRN PRN Reason: Nausea able to take PO [facility]oprazole [facility] Last Admin: 07/10/20 09:55 Dose: 40 mg Documented by: Sodium Chloride (Saline Flush) 10 ml FLUSH ASDIRECTED PRN PRN Reason: Keep Vein Open Last Admin: 07/09/20 23:54 Dose: 10 ml Documented by: Discontinued Medications Aspirin (Aspirin) 324 mg PO ONETIME ONE Stop: 07/10/20 00:14 Last Admin: 07/10/20 00:17 Dose: 324 mg Documented by: Furosemide (Lasix) 40 mg IVPUSH ONETIME ONE Stop: 07/09/20 23:26 Last Admin: 07/09/20 23:45 Dose: 40 mg Documented by: Furosemide (Lasix) 40 mg IVPUSH ONETIME ONE Stop: 07/10/20 03:31 Last Admin: 07/10/20 03:53 Dose: 40 mg Documented by: Morphine Sulfate (Morphine) 4 mg IVPUSH ONETIME ONE Stop: 07/10/20 00:14 Last Admin: 07/10/20 00:17 Dose: 4 mg Documented by: Oxycodone/Acetaminophen (Percocet 325-5 Mg) 1 tab PO ONETIME STA Stop: 07/09/20 22:41 Last Admin: 07/09/20 22:51 Dose: 1 tab Documented by:
== END 2020-07-10 12:23 | disposition home or self-care (01) ==
LOC: JP.ED 22:09 → JP.ICU 07-10 01:20
PROVIDERS: ADMIT Family Medicine; ATTEND Internal Medicine
DX: R07.89 Other chest pain (principal); R06.02 Shortness of breath; R60.9 Edema, unspecified; R79.89 Other specified abnormal findings of blood chemistry; K21.9 Gastro-esophageal reflux disease without esophagitis; Z79.899 Other long term (current) drug therapy; Z98.890 Other specified postprocedural states; Z86.79 Personal history of other diseases of the circulatory system
CPT/HCPCS: 36415; 71046; 80048; 83880; 84484; 85027; 93005; 96374; 96375; 99285; A9270; J1940; J2270; 93010; 96376; 99234; G0378

== ENCOUNTER 2021-10-28 07:15 | Day surgery (SDC) | payer BC ==
[2021-10-28] MEDS ORDERED: Sodium Chloride 0.9% 1,000 ML IV SCH (08:15)
[2021-10-28] MEDS ORDERED: fentaNYL 100 MCG/2 ML SDV ONE (09:05)
[2021-10-28] MEDS ORDERED: Midazolam 1 MG/ML 2 ML SDV ONE (09:05)
[2021-10-28] MEDS ORDERED: Propofol 200 MG/20 ML SDV ONE ×2 (09:05→09:26)
--- NOTE | 2021-10-28 11:06 | OR ---
DATE OF PROCEDURE: 10/28/2021 SURGEON: Luis Trevino MD PROCEDURES: 1. Esophagogastroduodenoscopy. 2. Colonoscopy. FINDINGS: 1. Mild inflammation at GE junction concerning for reflux disease (biopsied in all 4 quadrants using cold biopsy forceps). 2. Sigmoid colon polyp, approximately 5 mm, completely removed using cold biopsy forceps. COMPLICATIONS: None. BELT GLASS SANDER: None. ANESTHESIA: MAC. PREOPERATIVE DIAGNOSIS: Screening colonoscopy/epigastric pain. POSTOPERATIVE DIAGNOSIS: Screening colonoscopy/epigastric pain. RISKS: Risks, benefits, alternatives, and limitations including, but not limited to, infection, bleeding, perforation, false positives, and false negatives were explained to the patient who wished to proceed. PROCEDURE IN DETAIL: The patient was placed in left lateral decubitus position. The EGD scope was introduced and advanced atraumatically to the 2nd part of the duodenum. No evidence of duodenitis or ulceration was noted. Within the stomach itself, there was no gastritis or ulceration. At the GE junction, there was mild inflammation concerning for reflux disease, this was biopsied in all 4 quadrants using cold biopsy forceps. No gastritis or ulceration. Digital rectal exam was performed next. Scope was introduced and advanced atraumatically to the ileocecal valve. A photo was taken. The scope was brought back to the ascending, transverse, descending colon, and retroflexed. No evidence of old or new blood. No masses. The aforementioned polyp was identified and completely removed in the sigmoid colon. No abnormalities noted after removal. No abnormalities on retroflexion. The patient tolerated the procedure well. Luis Trevino MD /[id number]
== END 2021-10-28 10:44 | disposition home or self-care (01) ==
LOC: JP.SDS 07:15
PROVIDERS: ATTEND Surgery
DX: Z12.11 Encounter for screening for malignant neoplasm of colon (principal); K63.5 Polyp of colon; K21.00 Gastro-esophageal reflux disease with esophagitis, without bleeding; I48.91 Unspecified atrial fibrillation
CPT/HCPCS: 43239; 45380; J2250; J2704; J3010; J7030

== ENCOUNTER 2022-12-20 00:01 | Emergency (ER) | payer BC ==
[2022-12-20] MEDS ORDERED: HYDROmorphone 1 MG/ML Syringe IM ONE (00:26)
[2022-12-20] MEDS ORDERED: Ketorolac 30 MG/ML SDV IVPUSH ONE (01:26)
[2022-12-20] MEDS ORDERED: Propofol 200 MG/20 ML SDV ONE (02:53)
== END 2022-12-20 03:30 | disposition home or self-care (01) ==
LOC: JP.ED 00:01
DX: S43.015A Anterior dislocation of left humerus, initial encounter (principal); K21.9 Gastro-esophageal reflux disease without esophagitis; Z79.01 Long term (current) use of anticoagulants; W01.0XXA Fall on same level from slipping, tripping and stumbling without subsequent striking against object, initial encounter; Y92.009 Unspecified place in unspecified non-institutional (private) residence as the place of occurrence of the external cause
CPT/HCPCS: 23650; 73020; 73060; 96372; 96374; 99283; J1170; J1885; J2704; 99282

== ENCOUNTER 2023-03-04 13:09 | Emergency (ER) | payer BC ==
[2023-03-04] MEDS ORDERED: methylPREDNISolone Sodium Succinate 125 MG/2 ML SDV IM ONE (13:57)
== END 2023-03-04 14:16 | disposition home or self-care (01) ==
LOC: JP.ED 13:09
DX: K04.7 Periapical abscess without sinus (principal); Z79.01 Long term (current) use of anticoagulants
CPT/HCPCS: 96372; 99283; J2930